=== PATIENT | female | born 1995 | race Two or more races ===

== ENCOUNTER → 2025-06-18 14:56 | Outpatient (REF) | payer OTHER, SELFPAY | LOC: PNTC 14:56 | PROVIDERS: ATTENDING PHYSICIAN Advanced Practice Midwife | DX: Z34.02 Encounter for supervision of normal first pregnancy, second trimester (principal); O28.3 Abnormal ultrasonic finding on antenatal screening of mother; O35.BXX0 Maternal care for other (suspected) fetal abnormality and damage, fetal cardiac anomalies, not applicable or unspecified | CPT/HCPCS: 76811 ==